=== PATIENT | female | born 1995 | race Caucasian/White ===

== ENCOUNTER 2022-06-12 15:30 | Outpatient (REF) | payer OTHER, SELFPAY ==
[2022-06-14 11:20] LABS: COVID-19 RT-PCR UVMMC Result Negative (Negative)
== END 2022-06-12 15:31 | disposition home or self-care (01) ==
LOC: LBN 15:30
PROVIDERS: Visit Provider Physician Assistant Medical
DX: J02.9 Acute pharyngitis, unspecified (principal); Z20.822 Contact with and (suspected) exposure to COVID-19
CPT/HCPCS: U0003; 87070

== ENCOUNTER 2023-05-27 10:47 | Outpatient (REF) | payer BC, SELFPAY ==
--- NOTE | 2023-05-27 10:30 | PAPFT_PTH ---
PATIENT: Dayan Barriga LOC: [facility] U#:[id number] AGE/SX: 27/F ROOM: RE05/27/[address]: Priscila Nicholas NP : 1995 BED: DIS: 05/27/2023 SPEC #: [id number] RECD: 05/27/23 13:06 STATUS: EBONY RAMOS #: [id number] BIBIANA: 05/27/23 10:[address]: Priscila Nicholas NP DEPT: [facility] Cytology RECD BY: Marina Ortez Tissues: 1 - CX/ENDOCX FOR PAP SMEARS Procedures: PAP THIN PREP/UVM Screening Comments: [id number]
== END 2023-05-27 10:48 | disposition home or self-care (01) ==
LOC: LBN 10:47
PROVIDERS: Visit Provider Nurse Practitioner Women's Health
DX: Z12.4 Encounter for screening for malignant neoplasm of cervix (principal)
CPT/HCPCS: 88142

== ENCOUNTER 2024-09-16 01:04 | Outpatient (CLI) | payer BC, SELFPAY ==
--- NOTE | 2024-09-16 11:00 | DI.US_ITS ---
Exam(s) US OB 1ST TRIMESTER EXAM: US OB 1ST TRIMESTER CLINICAL HISTORY: dating for uncertain LMP/DOC, Z34.90-. COMPARISON: US POCUS EXAM from 08/19/2024 TECHNIQUE: Transabdominal Transvaginal first trimester obstetrical ultrasound performed. FINDINGS: Sonographic images demonstrate a single intrauterine gestation. A yolk sac and pole are seen. Sonographically assessed gestational age based upon crown-rump length of 5.3 mm is: 12+ 0 days Estimated date of delivery based on this ultrasound is: 31 March 2025 Estimated date of delivery based upon LMP: 11+ 3 weeks heart rate motion is Dopplered at: 180 bpm. No free fluid identified. Both ovaries appear sonographically normal. Pelvic Measurments Uterus: 13.3 x 6.0 x 9.8 cm Rt Ovary: Not visualized Lt Ovary: 4.1 x 2.2 x 3.6 cm IMPRESSION: Single live intrauterine gestation measuring 12 weeks 0 days. DATA REPOSITORY:
[2024-09-16 12:19] LABS: Panorama Kit Sent via Fed Ex
[2024-09-16 12:25] LABS: Abs Immature Grans 0.07 10^3/uL (0.0-0.06); Absolute Basophil Count 0.03 10^3/uL (0.0-0.2); Absolute Eosinophil Count 0.12 10^3/uL (0.0-0.7); Absolute Lymphocyte Count 3.05 10^3/uL (1.2-3.4); Absolute Monocyte Count 1.07 10^3/uL (0.1-0.8); Absolute Neutrophil Count 7.21 10^3/uL (1.2-6.7); Basophils % 0.3 %; HCT 36.6 % (36.0-46.0); HGB 12.1 g/dL (11.2-15.7); Immature Grans % 0.6 %; Lymphocytes % 26.4 %; MCH 30.9 pg (27.0-33.0); MCHC 33.1 % (32.0-36.0); MCV 93 fL (80-95); MPV 10.1 fL (8.0-11.0); Monocytes % 9.3 %; Neutrophils % 62.4 %; Platelet Count 333 10^3/uL (130-400); RBC 3.92 10^6/uL (3.93-5.22); RDW 13.4 % (11.7-14.6); RDW-SD 45.7 fL; WBC 11.55 10^3/uL (4.4-10.8)
[2024-09-17 08:10] LABS: Hepatitis B Surface Ag Negative (Negative)
[2024-09-17 08:43] LABS: Hepatitis C Ab w Rflx HCV PCR Negative (Negative)
[2024-09-17 08:55] LABS: HIV-1/2 Ag & Ab Screen Negative (Negative)
[2024-09-17 09:48] LABS: Varicella IgG Antibody Negative (See Note)
[2024-09-17 10:02] LABS: Rubella IgG Ab (UVM) Positive (See Note)
[2024-09-19 14:18] LABS: Syphilis IgG w/Reflex Nonreactive (Nonreactive)
[2024-09-21 15:42] LABS: Misc Referral (MAYO) See Comments
[2024-09-22 23:28] LABS: Specimen WB Whole Blood
[2024-10-06 11:03] LABS: Result Summary NEGATIVE; Specimen WB Whole Blood
== END 2024-09-16 01:05 | disposition home or self-care (01) ==
PROVIDERS: Visit Provider Advanced Practice Midwife
DX: Z34.91 Encounter for supervision of normal pregnancy, unspecified, first trimester
CPT/HCPCS: 36415; 81220; 81222; 81240; 81329; 83090; 85300; 85306; 86787; 86803; 86850; 86900; 86901; 87340; 87389; 76801; 85025; 86762; 86780

== ENCOUNTER 2024-09-16 11:57 | Outpatient (REF) | payer BC, SELFPAY ==
[2024-09-17 11:59] LABS: Chlamydia Result Negative (Negative); GC Result Negative (Negative)
== END 2024-09-16 11:58 | disposition home or self-care (01) ==
LOC: LBN 11:57
PROVIDERS: Visit Provider Advanced Practice Midwife
DX: Z34.91 Encounter for supervision of normal pregnancy, unspecified, first trimester (principal)
CPT/HCPCS: 87491; 87591; 87086

== ENCOUNTER 2024-10-06 21:56 | Outpatient (REF) | payer BC, SELFPAY | END 2024-10-06 21:57 | disposition home or self-care (01) | LOC: LBN 21:56 | PROVIDERS: Visit Provider Physician Assistant Medical | DX: J02.9 Acute pharyngitis, unspecified (principal) | CPT/HCPCS: 87070 ==

== ENCOUNTER 2024-10-13 04:44 | Outpatient (CLI) | payer BC, SELFPAY ==
[2024-10-13 18:51] LABS: Homocysteine 3.1 umol/L (5.0-13.9)
[2024-10-15 14:39] LABS: AFP 34.6 ng/mL; Calculated age at EDD 28 years; Cigarette smoking status non-Smoker; GA used in risk estimate Scan estimate; IVF Pregnancy No; Initial or repeat testing Initial testing; Insulin dependent diabetes No; Maternal Weight 176 lbs; Number of Fetuses 1; Physician Phone Number 802-748-7300; Prev Pregnancy w/NTD No; RECOMMENDED FOLLOW UP None.; Results Summary Normal risk
== END 2024-10-13 04:45 | disposition home or self-care (01) ==
LOC: LBO 04:44
PROVIDERS: Advanced Practice Midwife; Visit Provider Advanced Practice Midwife
DX: Z34.91 Encounter for supervision of normal pregnancy, unspecified, first trimester (principal)
CPT/HCPCS: 36415; 83090; 82105

== ENCOUNTER 2024-12-06 18:02 | Outpatient (CLI) | payer BC, SELFPAY ==
[2024-12-06 18:40] VITALS: BP 111/65; PULSE 107; RESP 20; TEMP 36.9
[2024-12-06 18:45] VITALS: BP 111/65; PULSE 107; RESP 20; TEMP 36.9
--- NOTE | 2024-12-06 19:27 | W.PM.PROGNOT ---
Date of Service Date of service: 12/06/24 Time of Service: 19:27 Assessment and Plan Assessment and plan (1) COVID-19 affecting in second trimester: Status: Acute Assessment and plan: A: 29 yo G1 @ 23+4 wks, COVID+ per home test, symptoms for 2 and a half days wellbeing verified; likely musculoskeletal soreness from coughing, fever P: Start Paxlovid, Rx sent to pharmacy UA is nml, pt to continue with oral hydration and light bland food intake Continue tylenol and sudafed for cough; mask if goes out, encouraged to rest at home Will reschedule appt from this week to next. Report to ED if SOB, worsening of symptoms, call for all concerns Subjective Subjective Interval history since last seen: Pt reports fever for 2 days with dry cough, now having sharp upper abd pains, is 23 wks , wants to know if her baby is OK. Has been taking tylenol, did a COVID test right before coming to hospital which was positive. Exam Narrative Exam Narrative: Pt in NAD, wearing mask. Neck Neck: normal visual inspection, full ROM and supple Chest Chest: normal inspection of the chest Resp Effort & Inspection: normal respiratory effort and able to speak in complete sentences Cardio Rate: regular rate Rhythm: regular rhythm GI Inspection: normal to inspection Palpation: soft (nontender, deep palpation in upper quadrants also nontender) Other: Gravid to 23 wk size, FHT 165, fetus active, no contractions palpated or on toco General: deferred Skin General skin exam: no rashes or lesions noted and elasticity normal Extrem General: normal to inspection, full ROM and normal gait Psych Mood: congruent mood Affect: normal affect Attitude: cooperative Thought Process: normal Objective Last Vital Signs Temp 98.4 F 12/06/24 18:45 Pulse 107 H 12/06/24 18:45 Resp 20 12/06/24 18:45 BP 111/65 12/06/24 18:45 Laboratory Results - last 24 hr 12/06/24 18:13 COVID-19 Source Cancelled SARS-CoV-2 (PCR) Cancelled Influenza Type A (PCR) Cancelled Influenza Type B (PCR) Cancelled RSV (PCR) Cancelled Time Spent with Patient Time Spent with Patient: <25 minutes Time was spent: preparing to see the patient(eg.review tests), obtaining and/or reviewing separately otained hiistory, ordering medications,tests, procedures, indepentently interpreting results and counseling the patient
== END 2024-12-06 19:05 ==
LOC: BCD 18:02 → OBS 18:13
PROVIDERS: Visit Provider Advanced Practice Midwife
DX: U07.1 COVID-19; O98.512 Other viral diseases complicating pregnancy, second trimester; Z3A.20 20 weeks gestation of pregnancy
CPT/HCPCS: 87637; 81003; G0378

== ENCOUNTER 2025-01-07 01:18 | Outpatient (CLI) | payer BC, SELFPAY ==
[2025-01-07 09:55] LABS: HCT 35.7 % (36.0-46.0); HGB 11.9 g/dL (11.2-15.7); MCH 30.9 pg (27.0-33.0); MCHC 33.3 % (32.0-36.0); MCV 93 fL (80-95); Platelet Count 300 10^3/uL (130-400); RBC 3.85 10^6/uL (3.93-5.22); RDW 13.3 % (11.7-14.6); RDW-SD 45.1 fL; WBC 12.38 10^3/uL (4.4-10.8)
[2025-01-07 10:07] LABS: Glucose,1 Hr (Glucola) 134 mg/dL (80-140)
== END 2025-01-07 01:19 | disposition home or self-care (01) ==
LOC: LBO 01:18
PROVIDERS: Advanced Practice Midwife; Visit Provider Advanced Practice Midwife
DX: Z34.92 Encounter for supervision of normal pregnancy, unspecified, second trimester (principal)
CPT/HCPCS: 36415; 82950; 85027

== ENCOUNTER 2025-01-21 00:27 | Outpatient (CLI) | payer BC, SELFPAY ==
--- NOTE | 2025-01-21 07:00 | DI.US_ITS ---
Exam(s) US OB CHESTER WEIGHT EXAM: US OB CHESTER WEIGHT CLINICAL HISTORY: renal pyelectasis,KIDNEY ABNL ON OB US,[id number].exx0. TECHNIQUE: Transabdominal obstetrical ultrasound performed. COMPARISON: US US OB 2-3 TRIMESTER from 11/15/2024 FINDINGS:: Number of fetuses: 1 position: Cephalic Placental location: Anterior. No evidence of previa. BIOMETRIC DATA: BPD: 7.62cm, 30weeks 4days HC: 27.97cm, 30weeks 4days AC: 26.06cm, 30weeks 1day FL: 5.91cm, 30weeks 6days EFW: 1,579.53g, 3lb 7.8oz, 48.7% Composite Age: 30weeks 4days DOC: 03/28/2025 Heart Rate: 149bpm Amniotic fluid index: 11.13cm. Visually, amount of fluid is within normal limits. kidneys: Persistent dilatation of the left collecting system to 8 millimeters. AP dimension of the right renal pelvis is 5 millimeters. IMPRESSION: size and weight are within the expected range. Stable renal pelviectasis left greater than right. DATA REPOSITORY:
[2025-03-02 15:32] VITALS: BP 120/76; PULSE 93
[2025-03-04 10:39] VITALS: BP 135/83; PULSE 96
== END 2025-03-02 15:28 ==
LOC: DI 00:27 → OBS 03-02 14:40
PROVIDERS: Visit Provider Advanced Practice Midwife
DX: O35.EXX0 Maternal care for other (suspected) fetal abnormality and damage, fetal genitourinary anomalies, not applicable or unspecified (principal); Z3A.30 30 weeks gestation of pregnancy
CPT/HCPCS: 76816

== ENCOUNTER 2025-03-02 14:47 | Outpatient (CLI) | payer BC, SELFPAY ==
[2025-03-02 15:29] VITALS: BP 120/76; PULSE 93; TEMP 209.7; TEMP 98.7
--- NOTE | 2025-03-02 17:50 | W.OBNST ---
Date of service: 03/02/25 Time of Service: 17:50 NST Evaluation Reason for NST Reasons for Nonstress Test: DECREASED MOVEMENT Gestational Age Gestational Age in Weeks and Days: 35 Weeks and 6Days Test and Monitor Explained Test/Monitor Explained: Test Explained, Monitor Explained and Patient Verbalized Understanding Vital Signs Blood Pressure: 120/76 Pulse: 93 Temperature: 209.7 F NST Information Date on Monitor: 03/02/25 Time on Monitor: 14:33 Date off Monitor: 03/02/25 Time off Monitor: 15:21 Total Time on Monitor: 48 NST Interventions: PO Hydration Contraction Frequency: 27 min NST Evaluation Patient States Movement: Present FHR Baseline: 145 Variability: Moderate 6-25 bpm Accelerations: 15x15 Decelerations: None NST Results: Reactive Note Ultrasound Done: N/A. NST Note NST Reviewed and Verified by: Carey Moreno
[2025-03-02 17:52] VITALS: BP 120/76; PULSE 93; TEMP 209.7; TEMP 98.7
== END 2025-03-02 15:30 ==
LOC: BCD 14:49 → OBS 15:01
PROVIDERS: Visit Provider Advanced Practice Midwife
DX: Z3A.35 35 weeks gestation of pregnancy (principal); O36.8131 Decreased fetal movements, third trimester, fetus 1
CPT/HCPCS: 59025

== ENCOUNTER 2025-03-07 10:22 | Outpatient (REF) | payer BC, SELFPAY | END 2025-03-07 10:23 | disposition home or self-care (01) | LOC: LBN 10:22 | PROVIDERS: Visit Provider Advanced Practice Midwife | DX: Z34.93 Encounter for supervision of normal pregnancy, unspecified, third trimester (principal) | CPT/HCPCS: 87081 ==

== ENCOUNTER 2025-04-03 16:15 | Inpatient (IN) | payer BC, SELFPAY ==
[2025-04-03] VITALS (10 sets, daily range): BP systolic 120–130; BP diastolic 76–81; PULSE 87–102; RESP 16–17; TEMP 36.7–37.1; O2SAT 97–99
[2025-04-03] MEDS: Normal Saline Flush 10 ML SYR IVP (08:00)
[2025-04-03 16:34] LABS: HCT 39.8 % (36.0-46.0); HGB 13.4 g/dL (11.2-15.7); MCH 30.0 pg (27.0-33.0); MCHC 33.7 % (32.0-36.0); MCV 89 fL (80-95); MPV 10.8 fL (8.0-11.0); Platelet Count 275 10^3/uL (130-400); RBC 4.46 10^6/uL (3.93-5.22); RDW 14.2 % (11.7-14.6); RDW-SD 46.1 fL; WBC 12.54 10^3/uL (4.4-10.8)
--- NOTE | 2025-04-03 16:38 | W.PM.OBHPL1 ---
Date of service: 04/03/25 Time of Service: 16:39 Assessment and Plan Assessment and plan (1) 40 weeks gestation of : Status: Acute (2) PROM (premature rupture of membranes): Status: Acute Assessment and plan: The natural history of PROM was discussed, noting that it occurs in about 8-10% of term pregnancies. Labor beings within 24 hours in 70% of parturients with PROM, and in 90+% within 96 hours. We discussed active versus expectant management, particularly noting that active management decreases risk for chorioamnionitis by about half, decreased NICU admissions and reduces the time from ROM to delivery by about 10 hours, while not increasing risk for delivery. We also discussed that expectant management is not associated with increased sepsis, may improve maternal / child bonding, and is associated with fewer interventions in labor, though the risk for choriomnionitis increases significantly after 24 hours. We reviewed that routine antibiotic prophylaxis is generally not indicated and that 's may need to be observed for 48 hours after delivery when ROM has been >24 hours. She voiced understanding of her options and would like to expectantly manage for the next 4 hours then consider IOL if labor has not begun spontaneously. A: IUP at 40 weeks 3 d Category I surveillance PROM x 3 hours GBS negative P: - Admit to L&D - CBC, Type and Screen - Discussed preferences - Discussed that time in the shower or using a breast pump can stimulate labor, particularly if the cervix is already ripe. If she chooses to use a breast pump, she should only pump one breast at a time, and continuous monitoring should be used while pumping. - Will defer / limit SVEs particularly until painful contractions start to help reduce the risk for infection - Will notify the pediatricians at the time of delivery of bilateral pelviectasis - Will reassess at 2000 per patient preference to determine whether to continue expectant management or proceed with IOL OB-HPI Labor/Delivery History of Present Illness Reason for Visit: 40 Weeks, PROM Chief Complaint: Suspected Rupture of Membranes , Associated Signs and Symptoms of Suspected ROM: See HPI. DOC Calculator Estimated Delivery Date Method Current WG Current Estimate 03/31/25 Ultrasound #2 40w 3d Other Estimates 02/28/25 LMP (Certain) 44w 6d 04/04/25 Ultrasound #1 39w 6d History of Present Expected Delivery Route/Plan - CNM FOB/ - Manuel Barriga (has 10 yo son) Will learn sex of baby at delivery, circ if male Varicella non-immune, offer vaccine PP Wants to labor at home, use water, nitrous, hopes to not need epidural GBS negative Specific Issues/Plan 1. Left side sciatica & low back pain, PT referral sent and pilates 2. Pt's mother with history of loss, Pos. MTHFR, no history of clots, 09/16- homocysteine=4.4 (nml); repeat homocysteine on 10/13=3.1 (low) 2a. per consult with Lorna Moreno MD, further testing and [facility] 2 and [facility] consult not indicated 3. cfDNA - low risk, CF negative, SMA negative, AFP- low risk 4. 5P screen negative, PHQ9 score=2 5. carpal tunnel- referred to Rosalino horner PT. Establishing care with PCP at [facility]. Wearing wrist braces daily. 6. anatomy survey at 20 wks: Bilateral renal pelviectasis, left greater than right. 6A. F/up scan 28 weeks- 48%ile. CHESTER 11. Stable bilteral pyelectasis 7. COVID+ at 23 wks, offered paxlovid treatment- Did not take Narrative: Dayan is a 29 year old at 40 weeks 3 days gestation by 1st trimester sonogram who presents to L&D for evaluation of LOF. She first felt a gush of clear fluid at ~1410 today, which saturated her clothing and has continued to leak. course as noted above Gestational weight gain: 53 lbs. SVE on 03/28/25 1 / 50% / -2 / soft ROS: Constitutional: denies fever / aches / chills, generally feels well OB: + FM, + BH contractions (unchanged over the past few weeks), small amount of bloody show when wiping PFSH All Active Problems (Updated 04/03/25 @ 20:22 by Marge Peace CNM) PROM (premature rupture of membranes) (Acute) 40 weeks gestation of (Acute) Kidney abnormality of fetus on ultrasound (Acute) COVID-19 affecting in second trimester (Acute) Carpal tunnel syndrome (Acute) Maternal varicella, non-immune (Acute) Family history of MTHFR deficiency (Acute) Pt's mother (Acute) Sciatica of left side (Acute) UTI (urinary tract infection) (Acute) Medical History No significant medical problems Surgical History No significant past surgical history Family History Father Hypertension Mother MTHFR mutation tested after miscarriages and a stillborn baby. 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 Sexually active: Yes Do you think of yourself as: straight/heterosexual Current gender identity: female What type of physical activity do you participate in: regular exercise Frequency: 5-6 times per week Seatbelt use: always Helmet use: Yes Drive intox or ride w/intox trolley coach driver: No Do you feel safe at home: Yes Do you feel safe in your relationship?: Yes Female Reproductive History Menstrual control method: none History History 1 Para 0 Hx # Term Pregnancies 0 Multiple births 0 Hx # Pregnancies 0 Ectopic pregnancies 0 AB induced 0 Hx Number of Living Children 0 AB spontaneous 0 Meds Allergies and Home Medications Allergies Allergy/AdvReac Type Severity Reaction Status Date / Time No Known Allergies Allergy Verified 03/28/25 10:04 Home Medications ?Medication ?Instructions ?Recorded ?Confirmed ?Type vitamins with calcium 1 tab PO DAILY #90 tabs 09/16/24 04/03/25 Rx no.72-iron 27 mg-folic acid 1 mg tablet ( Plus (calcium carbonate)) ferrous fumarate-ascorbic 1 tab PO DAILY 01/21/25 04/03/25 History acid-ascorbate sod 65 mg iron-125 mg tablet Exam Physical Exam Vital signs: Pulse BP 100 H 120/81 04/03/25 15:26 04/03/25 15:26 Narrative: Constitutional: well-nourished, well-developed, alert Respiratory: effort is unlabored, normal breath sounds bilaterally Cardiovascular: regular rate, normal rhythm, no murmurs, no edema bilateral LEXT Gastrointestinal: non-tender to palpation, tone normal without rigidity or guarding, no masses Genitourinary: - external: no inflammation, no lesions - vagina: SSE gross pooling of clear fluid, pH 7, + fern - cervix: SVE: deferred - uterus: gravid, normal shape, contractions q 2-5 minutes mild to palpation - perineum: within normal limits Musculoskeletal: no CVAT Skin and Subcutaneous Tissue: no rashes, no lesions, no areas of discoloration Fetus: - EFW: 3.3 kg - Presentation: vertex by Sunny's confirmed by POCUS - FHTs: 140s, moderate variability, + accels, no decels Detailed Labor and Delivery Exam Griffith Score: Cervical Points Exam 0 1 2 3 Dilation Closed 1-2cm 3-4 cm 5-6cm Effacement 0-30% 40-50% 60-70% 80% Consistency Firm Medium Soft Station -3 -2 -1,0 +1,+2 Position Posterior Mid Anterior Results Abnormal Lab Findings: Abnormal Labs 04/03/25 16:25 WBC 12.54 H Ultrasound OB Ultrasound for presentation. Indication: 40 weeks gestation Presentation: Vertex. Exam complete. Risk Assessment Risk for Shoulder Dystocia Historical/Initial OB: NEGATIVE FOR: Pelvic Abnormality, Pre- BMI>30, Previous Shoulder Dystocia or Previous Macrosomia 36 Weeks: POSITIVE FOR: Maternal Weight Gain>40lbs; NEGATIVE FOR: Current Gestational DM or EFW>4500gms Risk for Pre-Eclampsia Date Initiated/Initials: not indicated, JK Yes, if one or more: NEGATIVE FOR: Hx Pre-E/Gest HTN, Chronic HTN, Multiple Gestation, Pre-gestational DM, Renal Disease, Systemic Lupus or APA Syndrome Yes, if 2 or more: POSITIVE FOR: Nulliparity; NEGATIVE FOR: Age>= 35 yrs, >10yr btwn pregnancies, BMI>30, ethinicty, Mother/Sister w/ Pre-E or Previous IUGR Risk for Post- Hemorrhage Initial: NEGATIVE FOR: Multiple Gestation, Previous PPH, Known Clotting Deficiency, Grand Multiparity or Anticoagulation 36 Weeks: NEGATIVE FOR: Anemia, hgb<10, Low platelets(thrombocytopenia), Gestational HTN or Pre-E, Polyhydraminios or EFW>4500gms Risks Reviewed Risks Reviewed Upon Admission: Yes
--- NOTE | 2025-04-03 21:21 | W.PM.OBNL1 ---
Date of service: 04/03/25 Time of Service: 21:21 Assessment and Plan Assessment and plan (1) PROM (premature rupture of membranes): Status: Acute (2) 40 weeks gestation of : Status: Acute Assessment and plan: A: 40w 3d PROM x 7 hours, spontaneous onset of labor Reassuring surveillance P: - Dayan is finding NO to provide adequate analgesia and is happy to continue this pain relief method at this time - Intermittent ausculation of FHTs q 30 minutes through a contraction - Encouraged PO hydration and maternal position changes - Reassess cervix in 4 hours or sooner PRN Objective Abnormal lab results 04/03/25 Range/Units 16: WBC 12.54 H (4.4-10.8) 10^3/uL Temp Pulse Resp BP Pulse Ox 98.2 F 96 H 16 130/76 99 04/03/25 20:18 04/03/25 20:18 04/03/25 20:18 04/03/25 20:18 04/03/25 20:18 Laboratory Results WBC 12.54 10^3/uL (4.4-10.8) H 04/03/25 16:25 RBC 4.46 10^6/uL (3.93-5.22) 04/03/25 16:25 Hgb 13.4 g/dL (11.2-15.7) 04/03/25 16:25 Hct 39.8 % (36.0-46.0) 04/03/25 16: MCV 89 fL (80-95) 04/03/25 16:25 MCH 30.0 pg (27.0-33.0) 04/03/25 16:25 MCHC 33.7 % (32.0-36.0) 04/03/25 16:25 RDW 14.2 % (11.7-14.6) 04/03/25 16:25 Plt Count 275 10^3/uL (130-400) 04/03/25 16: MPV 10.8 fL (8.0-11.0) 04/03/25 16:25 ABO/Rh A Positive 04/03/25 16:25 Antibody Screen NEGATIVE 04/03/25 16:25 Objective Narrative Objective Narrative: UCs: q 2-4 minutes, moderate to palpation FHTs: 140s SVE: 4 cm / 80% / -1 station General: needing to pause and close eyes with focus during contractions Subjective Interval history since last seen: Dayan has found that contractions have steadily been intensifying this evening. She has been changing positions often, and is using her TENS unit and recently started using nitrous oxide. She continues to leak clear fluid. Results Hemoglobin/Hematocrit: Hgb 13.4 g/dL (11.2-15.7) 04/03/25 16:25 Hct 39.8 % (36.0-46.0) 04/03/25 16:25 Abnormal Lab Findings: Abnormal Labs 04/03/25 16:25 WBC 12.54 H
--- NOTE | 2025-04-03 23:29 | W.PM.OBNL1 ---
Date of service: 04/03/25 Time of Service: 23:29 Assessment and Plan Assessment and plan (1) PROM (premature rupture of membranes): Status: Acute (2) 40 weeks gestation of : Status: Acute Assessment and plan: A: IUP at 40w 3d Reassuring surveillance Latent labor, spontaneous onset after PROM, normal progress P: - Labor progress and expected trajectory discussed. Given this information, Dayan would like to continue with NO for now, but requests another cervical check in 2 hours as she feels she may be ready for an epidural then. Reviewed benefit of limiting SVEs after PROM, but Dayan feels this clinical information would be helpful for her decision making. Also discussed option for IV opiates which she is not interested in using at this time. Objective Abnormal lab results 04/03/25 Range/Units 16: WBC 12.54 H (4.4-10.8) 10^3/uL Temp Pulse Resp BP Pulse Ox 98.6 F 87 17 126/76 99 04/03/25 23:23 04/03/25 23:23 04/03/25 23:23 04/03/25 23:23 04/03/25 23:23 Laboratory Results WBC 12.54 10^3/uL (4.4-10.8) H 04/03/25 16: RBC 4.46 10^6/uL (3.93-5.22) 04/03/25 16:25 Hgb 13.4 g/dL (11.2-15.7) 04/03/25 16: Hct 39.8 % (36.0-46.0) 04/03/25 16: MCV 89 fL (80-95) 04/03/25 16:25 MCH 30.0 pg (27.0-33.0) 04/03/25 16:25 MCHC 33.7 % (32.0-36.0) 04/03/25 16: RDW 14.2 % (11.7-14.6) 04/03/25 16: Plt Count 275 10^3/uL (130-400) 04/03/25 16: MPV 10.8 fL (8.0-11.0) 04/03/25 16:25 ABO/Rh A Positive 04/03/25 16:25 Antibody Screen NEGATIVE 04/03/25 16:25 Objective Narrative Objective Narrative: AVSS UCs: q 2-3 minutes, strong to palpation FHTs: 130s per doppler SVE: 5 / 100 / -1, no moulding, no caput Subjective Interval history since last seen: Dayan is requesting a cervical check as she feels it will help her decide whether or not to have an epidural. She is using NO and is starting to feel quite tired. She continues to leak fluid. She has been changing positions often, most recently kneeling leaning forward over the birthing ball. Results Hemoglobin/Hematocrit: Hgb 13.4 g/dL (11.2-15.7) 04/03/25 16:25 Hct 39.8 % (36.0-46.0) 04/03/25 16:25 Abnormal Lab Findings: Abnormal Labs 04/03/25 16:25 WBC 12.54 H
[2025-04-04] VITALS (24 sets, daily range): BP systolic 73–146; BP diastolic 47–82; PULSE 81–105; RESP 16–18; TEMP 36.7–37.1; O2SAT 96–100
[2025-04-04] MEDS: Lactated Ringers 1,000 ML 1000 ML IV (00:02)
--- NOTE | 2025-04-04 01:18 | W.PM.OBNL1 ---
Date of service: 04/04/25 Time of Service: 01:18 Assessment and Plan Assessment and plan (1) PROM (premature rupture of membranes): Status: Acute (2) 40 weeks gestation of : Status: Acute Assessment and plan: A: IUP at 40 weeks 4 days Category I surveillance PROM x 11 hours Active labor, spontaneous entry P: - Return to intermittent auscultation - Encouraged Dayan to get up to the bathroom to void - Reassured Dayan of normal progress through labor - Reassess in 2-3 hours or sooner PRN Objective Abnormal lab results 04/03/25 Range/Units 16: WBC 12.54 H (4.4-10.8) 10^3/uL Temp Pulse Resp BP Pulse Ox 98.6 F 101 H 17 126/79 99 04/04/25 00:45 04/04/25 01:13 04/03/25 23:23 04/04/25 01:13 04/03/25 23:23 Laboratory Results WBC 12.54 10^3/uL (4.4-10.8) H 04/03/25 16:25 RBC 4.46 10^6/uL (3.93-5.22) 04/03/25 16:25 Hgb 13.4 g/dL (11.2-15.7) 04/03/25 16:25 Hct 39.8 % (36.0-46.0) 04/03/25 16: MCV 89 fL (80-95) 04/03/25 16:25 MCH 30.0 pg (27.0-33.0) 04/03/25 16: MCHC 33.7 % (32.0-36.0) 04/03/25 16:25 RDW 14.2 % (11.7-14.6) 04/03/25 16: Plt Count 275 10^3/uL (130-400) 04/03/25 16: MPV 10.8 fL (8.0-11.0) 04/03/25 16:25 ABO/Rh A Positive 04/03/25 16: Antibody Screen NEGATIVE 04/03/25 16:25 Objective Narrative Objective Narrative: UCs: q 1.5-3 minutes, moderate to strong to palpation FHTs: 140s, moderate variability, + accels, no decels SVE: 6.5 cm / 100 / 0 station, no caput, no moulding Subjective Interval history since last seen: Dayan is feeling increasing amount of pelvic pressure, It is hard to not push, though she is not heard to be involuntarily pushing. She continues to use NO. She received an LR bolus as she had a near tachysystolic uterine pattern (without heart rate changes) and because of this the RN has been using continuous monitoring. Results Hemoglobin/Hematocrit: Hgb 13.4 g/dL (11.2-15.7) 04/03/25 16:25 Hct 39.8 % (36.0-46.0) 04/03/25 16:25 Abnormal Lab Findings: Abnormal Labs 04/03/25 16:25 WBC 12.54 H
--- NOTE | 2025-04-04 02:15 | W.PM.OBNL1 ---
Date of service: 04/04/25 Time of Service: 02:15 Assessment and Plan Assessment and plan (1) PROM (premature rupture of membranes): Status: Acute (2) 40 weeks gestation of : Status: Acute Assessment and plan: A: IUP at 40w 4d Reassuring surveillance Active labor, normal progress PROM x 12 hours P: - Canceled OUTREACH CONSULTANT consult - Encouraged recumbent maternal positions to help with cervical and vulvar edema that was appreciated on exma - Reassess in 2 hours or sooner PRN Objective Abnormal lab results 04/03/25 Range/Units 16:25 WBC 12.54 H (4.4-10.8) 10^3/uL Temp Pulse Resp BP Pulse Ox 98.6 F 101 H 17 126/79 99 04/04/25 00:45 04/04/25 01:13 04/03/25 23:23 04/04/25 01:13 04/03/25 23:23 Laboratory Results WBC 12.54 10^3/uL (4.4-10.8) H 04/03/25 16:25 RBC 4.46 10^6/uL (3.93-5.22) 04/03/25 16:25 Hgb 13.4 g/dL (11.2-15.7) 04/03/25 16:25 Hct 39.8 % (36.0-46.0) 04/03/25 16:25 MCV 89 fL (80-95) 04/03/25 16:25 MCH 30.0 pg (27.0-33.0) 04/03/25 16:25 MCHC 33.7 % (32.0-36.0) 04/03/25 16:25 RDW 14.2 % (11.7-14.6) 04/03/25 16:25 Plt Count 275 10^3/uL (130-400) 04/03/25 16:25 MPV 10.8 fL (8.0-11.0) 04/03/25 16:25 ABO/Rh A Positive 04/03/25 16:25 Antibody Screen NEGATIVE 04/03/25 16:25 Objective Narrative Objective Narrative: UCs: q 2 minutes FHTs: 130s per doppler SVE: 7 cm / 100 (anterior portion is mildly edematous) / 0 station, no caput, no moulding, vulva is also mildly edematour Subjective Interval history since last seen: Dayan continues to feel increasing pelvic pressure. She has been sitting backwards on the toilet coping beautifully with labor, using NO. She returned to bed in preparation for an epidural and after hearing that her cervix was 7 cm, decided not to receive an epidural. Results Hemoglobin/Hematocrit: Hgb 13.4 g/dL (11.2-15.7) 04/03/25 16:25 Hct 39.8 % (36.0-46.0) 04/03/25 16:25 Abnormal Lab Findings: Abnormal Labs 04/03/25 16:25 WBC 12.54 H
--- NOTE | 2025-04-04 06:01 | OBVDS_ITS ---
Date of service: 04/04/25 Time of Service: 06:01 OB Labor/ Delivery Information Baby A Delivery Delivery Method: Spontaneaous Presentation: Cephalic Cephalic Position: Vertex Vertex Position: Right Occipital Anterior Cord Description-Baby A: 3 Vessels Amniotic Fluid: Clear Estimated Blood Loss: 500 Delivery Outcome: Liveborn Transferred: Remains with Mother Providers Nurse Transfer Station Operator: Marge Peace Nurse: Giselle Brady Nurse: Alis Ferrer Labor/Delivery Information Number of Babies in Womb: 1 Steroids Given: None Reason Steroids Not Administered: N/A Group Beta Strep: Negative Antibiotics Administered: No Rubella Status: Immune Blood Type: A+ Varicella Immunity: Nonimmune Shoulder Dystocia: No Stages of Labor Onset of Labor Date: 04/03/25 Onset of Labor Time: 14:15 Complete Dilatation Date: 04/04/25 Complete Dilatation Time: 03:43 Labor - Stage 1 Duration: 13 hours and 28 minutes ROM Baby A: 04/03/25 ROM Baby A: 14:45 ROM Total Time- Baby A: [id number] Infant Delivery Date-Baby A: 04/04/25 Infant Delivery Time-Baby A: 05:30 Labor Stage 2 Duration: 1 hours and 47 minutes Placenta Delivery Date-Baby A: 04/04/25 Total Length of Labor-Baby A: 15 hours and 15 minutes Baby A Gender: Female Gestational Status: Term (39-41.6 wks) Gestational Age in Weeks/Days: 40 Weeks and 4 Days Score-1 Minute Interval(Baby A) Heart Rate-1 minute: 100 BPM or Greater Respiratory Effort- 1 minute: Spontaneous/Strong Cry Muscle Tone-1 minute: Minimal Flexion/Extension Reflex Response-1 minute: Prompt Response Color-1 minute: Pallor or Cyanosis Total Score-1 minute: 7 Score-5 Minute Interval(Baby A) Heart Rate- 5 minute: 100 BPM or Greater Respiratory Effort-5 minute: Spontaneous/Strong Cry Muscle Tone-5 minute: Active Movement Reflex Response-5 minute: Prompt Response Color-5 minute: Bluish Hands or Feet Total Score- 5 minute: 9 Note: Now Gestational age: 40w4d 1st stage of labor: PROM with spontaneous onset of labor not requiring augmentation. She used her internal strength and nitrous oxide for pain relief. 2nd stage of labor: She started to have involuntary pushing, at which time there was an anterior rim of cervix. This rim was manually reduced, and she commenced at 0 station. In a semi-reclining position, she had a NSVB of a viable female infant. The was born OA, and restituted to ROT. The shoulder and body delivered slowly through the strong and tight perineum using gentle traction in the axilla. The was immediately vigorous, and was placed on the maternal abdomen where she continued to cry, and was dried. 3rd stage of labor: Dilute IV Pitocin was given for active management of the 3rd stage of labor. The cord was double clamped by this CNM and transected by the 's father. Cord blood was collected for routine analysis. After separation bleeding and cord lengthening were noted, the placenta expelled spontaneously, intact, 3-V cord, Wen mechanism, marginal cord insertion. The fundus was massaged and found to be boggy and bleeding was brisk so she was also given IM methergine, after which the fundus firmed up and bleeding slowed. EBL 500 mL. The perineum was inspected and to be to be intact. Mother and stable at the conclusion of this note. Intrapartum complications: PROM with spontaneous onset of labor
[2025-04-04] MEDS: Ibuprofen 600 MG TAB PO ×3 (07:42→20:50)
[2025-04-04] MEDS: Acetaminophen 325 MG TAB 650 MG PO ×3 (07:42→20:50)
[2025-04-04] MEDS: Docusate Sodium 100 MG CAP PO ×2 (07:45→23:14)
[2025-04-04] MEDS: Hamamelis Leaf/Glycerin 100 EACH BOX PR (07:45)
[2025-04-04] MEDS: miSOPROStol 100 MCG TAB 600 MCG PO (08:03)
[2025-04-04] MEDS: Methylergonovine 0.2 MG TAB PO ×2 (14:07→23:14)
[2025-04-05 06:52] LABS: HCT 39.6 % (36.0-46.0); HGB 13.0 g/dL (11.2-15.7); MCH 29.5 pg (27.0-33.0); MCHC 32.8 % (32.0-36.0); MCV 90 fL (80-95); MPV 11.1 fL (8.0-11.0); Platelet Count 285 10^3/uL (130-400); RBC 4.40 10^6/uL (3.93-5.22); RDW 14.5 % (11.7-14.6); RDW-SD 47.5 fL; WBC 17.87 10^3/uL (4.4-10.8)
[2025-04-05] MEDS: Methylergonovine 0.2 MG TAB PO (07:19)
[2025-04-05] MEDS: Ibuprofen 600 MG TAB PO ×2 (07:20→13:27)
[2025-04-05] MEDS: Docusate Sodium 100 MG CAP PO ×2 (07:20→20:00)
[2025-04-05] MEDS: Acetaminophen 325 MG TAB 650 MG PO ×2 (07:20→13:27)
--- NOTE | 2025-04-05 07:33 | W.PM.OBPNV1 ---
Date of service: 04/05/25 Time of Service: 07:33 Assessment and Plan Assessment and plan (1) Vaginal delivery: Status: Acute Assessment and plan: A: PPD#1, nml recovery off to a good start Pleased with her experience Offer varicella vaccine prior to discharge P: Continue routine PP care Plan f/up at 2 & 6 wks PP Pt expects to use condoms for contraception Expect discharge tomorrow Subjective Subjective Patient's Mood: happy Amelia baby status: Doing well, Nursing well, Rooming in and Strong Bonding Observed feeding status: Exclusively breast feeding Exam Physical Exam Vital signs: Temp Pulse Resp BP Pulse Ox 98.2 F 99 H 17 122/82 99 04/04/25 21:12 04/04/25 21:12 04/04/25 21:12 04/04/25 21:12 04/04/25 21:12 Vital Signs Reviewed: Yes Constitutional Constitutional: no acute distress and cooperative HEENT Exam HEENT Exam: Normal Neck Exam Neck Exam: Normal Breast Exam Bilateral: Breast Exam: Normal and Soft Nipple Exam: Normal and Uninjured (right nipple with small blister) Respiratory Exam Respiratory Exam: Normal Cardiovascular Exam Cardiovascular Exam: Normal Abdominal Exam Abdomen: Other (soft and nontender) Fundal Exam Fundus: Below Umbilicus and Firm Rectal Exam Rectal Exam: Normal Exam Perineum: Intact Extremities Exam Extremity Exam: Normal, Full ROM and Warm to Touch Back/Spine/Pelvis Exam Back Exam: Normal Skin Exam Skin Exam: Normal Neurological Exam Neurological Exam: Normal Psychiatric Exam Psychiatric Exam: Normal Results Hemoglobin/Hematocrit: Hgb 13.0 g/dL (11.2-15.7) 04/05/25 06:35 Hct 39.6 % (36.0-46.0) 04/05/25 06:35 Abnormal Lab Findings: Abnormal Labs 04/03/25 04/05/25 16:25 06:35 WBC 12.54 H 17.87 H MPV 11.1 H
[2025-04-05 07:40] VITALS: BP 112/80; PULSE 91; RESP 16; TEMP 36.6; O2SAT 97
[2025-04-05 16:53] VITALS: BP 105/78; PULSE 77; RESP 17; TEMP 36.7; O2SAT 97
[2025-04-06] MEDS: Ibuprofen 600 MG TAB PO (04:30)
[2025-04-06] MEDS: Acetaminophen 325 MG TAB 650 MG PO (04:30)
[2025-04-06] MEDS: Docusate Sodium 100 MG CAP PO (07:36)
[2025-04-06 07:55] VITALS: BP 110/89; PULSE 80; RESP 16; TEMP 36.6; O2SAT 99
--- NOTE | 2025-04-06 09:28 | W.PM.OBDISCH ---
Date of service: 04/06/25 Time of Service: 09:28 DS: Diagnosis Discharge Diagnosis (1) Vaginal delivery: Status: Acute Asessment and Plan: Caring for baby independently. Pain is managed well with oral analgesics. Voiding without difficulty. well. A - stable mother and baby , Post day 2 P - Discharge to home today. Routine post instructions. Dayan requests pelvic floor therapy and referral was sent. Mau taught. Follow up at [facility]. Discharge Plan Disposition Patient Disposition: Home Condition: Good Discharge Details Reason For Visit: 40 Weeks, PROM Admit Date/Time: 04/03/25 16:15 Admit Provider: Marge Peace Attending Provider: Marge Peace Primary Care Provider: Unknown,Unknown Home Meds and New Rx's Prescriptions: No Action iron fum-vit C-ascorbate sod 65 mg iron- 125 mg tablet 1 tab PO DAILY Plus (calcium carb) 27 mg iron- 1 mg tablet 1 tab PO DAILY Qty: 90 3RF Discharge Instructions Stand Alone Forms: BC Instructions, BC Post Vaginal Deliver Activity:: Activity as Tolerated Equipment/Supplies:: No Equipment Needed Diet:: As Tolerated Discharge Orders Discharge Orders: Discharge Order (Routine); Ordered 04/06/25 Ordered By: Gail Gaspar OB:DS Summary Summary Vaginal Delivery Method: Spontaneaous Contraception Discussed Contraception Discussed: Yes Contraceptive Plan: Foam/Condoms (and natural family planning/ [place] [facility]), Infant Gender-Baby A: Female weight: 8 lb 6.041 oz Status at Discharge Functional status at discharge: independent ambulation Overall status at discharge: patient is back to baseline Mental Status: mental status grossly normal Speech and Movement: speech and movement normal Mood: congruent mood Affect: normal affect Exam Physical Exam Vital signs: Temp Pulse Resp BP Pulse Ox 97.8 F 80 16 110/89 99 04/06/25 07:55 04/06/25 07:55 04/06/25 07:55 04/06/25 07:55 04/06/25 07:55 Vital Signs Reviewed: Yes Constitutional Constitutional: no acute distress HEENT Exam HEENT Exam: Normal Respiratory Exam Respiratory Exam: Normal Cardiovascular Exam Cardiovascular Exam: Normal Fundal Exam Fundus: Below Umbilicus and Firm Exam Patient deferred: external exam Comments: delivery over intact perineum Extremities Exam Extremity Exam: Normal Skin Exam Skin Exam: Normal Psychiatric Exam Psychiatric Exam: Normal PFSH All Active Problems (Updated 04/05/25 @ 07:36 by Carey Moreno) Vaginal delivery (Acute) Kidney abnormality of fetus on ultrasound (Acute) Carpal tunnel syndrome (Acute) Maternal varicella, non-immune (Acute) Family history of MTHFR deficiency (Acute) Pt's mother Sciatica of left side (Acute) Medical History (Updated 04/05/25 @ 07:36 by Carey Moreno) UTI (urinary tract infection) COVID-19 affecting in second trimester PROM (premature rupture of membranes) 40 weeks gestation of Single live PROM with onset of labor within 24 hours, delivered, [facility] No significant medical problems Surgical History No significant past surgical history Family History Father Hypertension Mother MTHFR mutation tested after miscarriages and a stillborn baby. 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 Sexually active: Yes Do you think of yourself as: straight/heterosexual Current gender identity: female What type of physical activity do you participate in: regular exercise Frequency: 5-6 times per week Seatbelt use: always Helmet use: Yes Drive intox or ride w/intox jeep driver: No Do you feel safe at home: Yes Do you feel safe in your relationship?: Yes Female Reproductive History Menstrual control method: none History History 1 Para 0 Hx # Term Pregnancies 0 Multiple births 0 Hx # Pregnancies 0 Ectopic pregnancies 0 AB induced 0 Hx Number of Living Children 0 AB spontaneous 0 DS: Data Vitals/I&O Vitals and I&O: Vital Signs Temperature 97.8 F 04/06/25 07:55 Temperature 98.8 F 04/03/25 15:19 Temperature Source Oral 04/06/25 07:55 Pulse 80 04/06/25 07:55 Pulse 100 04/03/25 15:19 Pulse Rhythm Regular 04/06/25 07:55 Respiratory Rate 16 04/06/25 07:55 Respiratory Depth Normal 04/04/25 20:15 Blood Pressure 110/89 04/06/25 07:55 Blood Pressure 120/81 04/03/25 15:19 Blood Pressure Mean 96 04/06/25 07:55 Pulse Oximetry 99 04/06/25 07:55 Pain Level 3 04/04/25 21:12 Comment will retake, mom was moving around 04/04/25 01:11 Intake & Output 04/05/25 04/05/25 04/06/25 11:59 23:59 11:59 Other: Comment pt has been voiding independently. pt voiding independently. reports no complications with voiding. pt voids independently with reports of no complications.
== END 2025-04-06 10:00 | disposition home or self-care (01) | DRG 806 ==
LOC: BCD 18:58 → OBS 18:58
PROVIDERS: Admitting Provider Advanced Practice Midwife; Visit Provider Advanced Practice Midwife
DX: O42.92 Full-term premature rupture of membranes, unspecified as to length of time between rupture and onset of labor (principal); O99.354 Diseases of the nervous system complicating childbirth; Z37.0 Single live birth; Z3A.40 40 weeks gestation of pregnancy; M54.42 Lumbago with sciatica, left side; G56.03 Carpal tunnel syndrome, bilateral upper limbs; O75.89 Other specified complications of labor and delivery
CPT/HCPCS: 36415; 85027; 86850; 86900; 86901; 59025